=== PATIENT | female | born 1955 | race Hispanic/Latino ===

== ENCOUNTER 2023-10-21 05:05 | Observation (INO) | payer OTHER ==
[2023-10-16 12:14] LABS: BASOPHILS # (AUTO) 0.02 K/uL (0.00-0.20); BASOPHILS % (AUTO) 0.3 % (0.0-5.0); EOSINOPHILS # (AUTO) 0.22 K/uL (0.00-0.70); EOSINOPHILS % (AUTO) 3.4 % (0.0-8.0); HEMATOCRIT 42.4 % (36-48); IMMATURE GRANULOCYTE ABSOLUTE 0.01 K/uL (0-1); LYMPHOCYTES % (AUTO) 30.5 % (21.0-51.0); MEAN CORPUSCULAR HEMOGLOBIN 31.1 pg (27.0-33.0); MEAN CORPUSCULAR HGB CONC 32.1 g/dL (32.0-36.0); MONOCYTES # (AUTO) 0.6 K/uL (0.1-1.0); MONOCYTES % (AUTO) 9.5 % (3.0-13.0); NEUTROPHILS # (AUTO) 3.7 K/uL (1.8-7.7); NEUTROPHILS % (AUTO) 56.1 % (40.0-77.0); PLATELET COUNT (AUTO) 250 K/uL (130-400); RED BLOOD CELL COUNT(AUTO) 4.37 MIL/uL (4.00-5.50); WHITE BLOOD COUNT (AUTO) 6.5 K/uL (4.8-10.8)
[2023-10-16 12:28] LABS: INR <= 0.93 (0.85-1.15); PROTHROMBIN TIME 10.6 SEC (9.6-11.6)
[2023-10-16 12:30] LABS: PARTIAL THROMBOPLASTIN TIME 29.4 SEC (26.3-35.5)
[2023-10-16 12:33] VITALS: BP 159/89; PULSE 68; RESP 18
[2023-10-16 12:35] LABS: ALBUMIN 3.8 g/dL (3.5-5.0); BILIRUBIN,TOTAL 0.6 mg/dL (0.2-1.0); CREATININE 0.6 mg/dL (0.5-1.0); POTASSIUM 4.6 mmol/L (3.5-5.1); TOTAL PROTEIN, SERUM 7.5 g/dL (6.0-8.3)
[~2023-10-21] VITALS: Ht 152.4 cm; Wt 90.7 kg
[2023-10-21] VITALS (27 sets, daily range): BP systolic 91–156; BP diastolic 42–90; PULSE 50–70; RESP 12–16; O2SAT 99
[~2023-10-21 05:05] MED LIST: AEC81 PO; CHOL200059 PO; ENAL-91 PO; EZET10TA48 PO; FISH1CAP27 PO; LORA10TA7 PO; METF-910 PO; MVI PO; TYLENOL PM PO; VITAMIN B12 PO; [UNRECOGNIZED DRUG - REMARK] PO
[2023-10-21] MEDS: 0.9%NACL 1000ML 1,000 ML IV ONE (07:11)
[2023-10-21] MEDS ORDERED: NEOSTIGMINE METHYLSULFATE 1MG/ML IV ONE (10:26)
[2023-10-21] MEDS ORDERED: SUCCINYLCHOLINE CHLORIDE 20 MG/ML 10 ML VIAL ONE (10:26)
[2023-10-21] MEDS ORDERED: ONDANSETRON 4MG INJ ONE (10:26)
[2023-10-21] MEDS ORDERED: LIDOCAINE PF 100MG/5ML (2%) SYRINGE 5ML ONE (10:26)
[2023-10-21] MEDS ORDERED: GLYCOPYRROLATE 0.2 MG/ML 5 ML VIAL ONE (10:26)
[2023-10-21] MEDS ORDERED: MIDAZOLAM HCL 1 MG/ML 2ML VIAL ONE (10:26)
[2023-10-21] MEDS ORDERED: DEXAMETHASONE SOD PHOSPHATE 10MG/ML 1ML VIAL ONE (10:26)
[2023-10-21] MEDS ORDERED: ROCURONIUM BROMIDE 10MG/1ML 5ML VL ONE (10:26)
[2023-10-21] MEDS ORDERED: PROPOFOL 10 MG/ML 20ML VIAL IV ONE (10:26)
[2023-10-21] MEDS ORDERED: FENTANYL CITRATE PF 50 MCG/1 ML 2ML VIAL ONE ×2 (10:27→11:54)
[2023-10-21] MEDS ORDERED: TRANEXAMIC ACID 1000MG/10ML ONE (11:17)
[2023-10-21] MEDS: TRANEXAMIC ACID 1000MG/10ML IV ONE ×2 (11:40→12:55)
[2023-10-21] MEDS: CEFAZOLIN SODIUM 2 GM VIAL ONE ×2 (11:45→17:41)
[2023-10-21] MEDS: 0.9%NACL 48.45 ML, ROPIVACAINE 0.5% 49.25ML, EPINEPH 0.5MG KETOROLAC 30MG,CLONIDINE 80MCG IV PRN (12:40)
[2023-10-21] MEDS: SUGAMMADEX SODIUM 200 MG/2 ML VIAL IV ONE (13:34)
[2023-10-21] MEDS ORDERED: MEPERIDINE-PF 25 MG/ML SYG ONE (13:48)
[2023-10-21] MEDS: 0.9%NACL 1000ML 1,000 ML IV SCH (16:00)
[2023-10-21] MEDS ORDERED: ACETAMINOPHEN 325 MG TAB PO PRN ×2 (16:00)
[2023-10-21] MEDS ORDERED: HYDROMORPH /0.9% NACL/PF PCA 50 ML IV PRN (16:00)
[2023-10-21] MEDS ORDERED: MAG/ALUM/SIMETH 30 ML UDCUP PO PRN (16:00)
[2023-10-21] MEDS ORDERED: ONDANSETRON 4MG INJ IVP PRN (16:00)
[2023-10-21] MEDS ORDERED: CEFAZOLIN SODIUM 2 GM VIAL IVPB SCH (16:00)
[2023-10-21] MEDS ORDERED: ACETAMINOPHEN 325 MG TAB PO SCH (16:30)
[2023-10-21] MEDS ORDERED: TRAMADOL HCL 50 MG TABLET PO PRN (16:30)
[2023-10-21] MEDS ORDERED: DIPHENHYDRAMINE HCL 25 MG CAPSULE PO PRN (16:30)
[2023-10-21] MEDS ORDERED: DIPHENHYDRAMINE HCL 25 MG CAPSULE PO SCH (16:30)
[2023-10-21] MEDS ORDERED: LACTULOSE 20 GM/30 ML UDCUP PO PRN (16:30)
[2023-10-21] MEDS ORDERED: BENZOCAINE/MENTH/CETYLPYRD CL 1 EACH LOZENGE MM PRN (16:30)
[2023-10-21] MEDS ORDERED: DIPHENOXYLATE HCL/ATROPINE 2.5/0.025 MG TAB PO PRN (16:30)
[2023-10-21] MEDS: CEFAZOLIN SODIUM 3 GM in DEXTROSE 5%-WATER 100 ML IVPB SCH (17:40)
[2023-10-21] MEDS: CEFAZOLIN SODIUM 1 GM VIAL ONE (17:41)
[2023-10-21] MEDS: METFORMIN HCL 500 MG TAB.SR.24H PO SCH (19:39)
[2023-10-21] MEDS: TRAMADOL HCL 50 MG TABLET PO PRN (21:55)
[2023-10-22 00:27] VITALS: BP 104/56; PULSE 59; RESP 16
[2023-10-22 04:24] LABS: HEMATOCRIT 35.3 % (36-48); MEAN CORPUSCULAR HEMOGLOBIN 30.8 pg (27.0-33.0); MEAN CORPUSCULAR VOLUME 96.2 fL (79-99); RED BLOOD CELL COUNT(AUTO) 3.67 MIL/uL (4.00-5.50); RED CELL DISTRIBUTION WIDTH 13.6 % (11.0-15.5); WHITE BLOOD COUNT (AUTO) 12.3 K/uL (4.8-10.8)
[2023-10-22 04:29] VITALS: BP 105/48; PULSE 54; RESP 16
[2023-10-22 04:32] LABS: CREATININE 0.6 mg/dL (0.5-1.0); POTASSIUM 5.2 mmol/L (3.5-5.1)
[2023-10-22 08:00] VITALS: O2SAT 99
[2023-10-22 08:42] VITALS: BP 106/58; PULSE 68; RESP 16
[2023-10-22] MEDS: RIVAROXABAN 10 MG TABLET PO SCH (08:59)
[2023-10-22] MEDS: LORATADINE 10 MG TABLET PO SCH (09:00)
[2023-10-22] MEDS: EZETIMIBE 10 MG TAB PO SCH (09:00)
[2023-10-22] MEDS: ENALAPRIL MALEATE 10 MG TABLET PO SCH (09:00)
[2023-10-22 12:21] VITALS: BP 99/56; PULSE 60; RESP 16
[2023-10-22 16:56] VITALS: BP 101/65; PULSE 77; RESP 16
== END 2023-10-22 16:30 | disposition home or self-care (01) ==
LOC: DAH 05:05 → DAHIP 05:06 → 4CH 16:00
PROVIDERS: ADMIT Orthopaedic Surgery; ATTEND Orthopaedic Surgery
DX: M17.11 Unilateral primary osteoarthritis, right knee (principal); K21.9 Gastro-esophageal reflux disease without esophagitis; E78.5 Hyperlipidemia, unspecified; K22.70 Barrett's esophagus without dysplasia; E11.9 Type 2 diabetes mellitus without complications; I10 Essential (primary) hypertension; I27.20 Pulmonary hypertension, unspecified; E66.01 Morbid (severe) obesity due to excess calories; Z86.73 Personal history of transient ischemic attack (TIA), and cerebral infarction without residual deficits; Z86.2 Personal history of diseases of the blood and blood-forming organs and certain disorders involving the immune mechanism; Z68.39 Body mass index [BMI] 39.0-39.9, adult; Z90.710 Acquired absence of both cervix and uterus
CPT/HCPCS: 80053; 85025; 85610; 85730; 36415 ×2; 87641; 27447; 96365; 82948 ×5; 97161; 97012; 97116 ×3; 97530 ×4; 96366; 80048; 85027; A6260; Q0163; G0378 ×22; A4510; A4663; J7120; A4215 ×2; A4649 ×4; J3010 ×2; J0690 ×3; J3490 ×5; J1100; J0330; J7030 ×2; J2001; J2250; J7060; J2704; J2405; J2710; J2175; A6223; C1763 ×2; C1776; A4930; A5120; A4223; A4213; A4222; A4221; A6450